=== PATIENT | female | born 1975 | race Caucasian/White ===

== ENCOUNTER → 2016-08-29 | Day surgery (SDC) | payer BC ==
--- NOTE | 2016-08-23 12:06 | MH ---
cc: KOLTON PERALTA MD Chano Garcia, [place], [place]. DATE OF ADMISSION: 08/29/2016 ADMITTING DIAGNOSIS: Trans obturator tape for stress incontinence. HISTORY OF PRESENT ILLNESS: The patient is a 41 year-old white female, 3, Para 3, has had issues with stress urinary incontinence since her last vaginal delivered baby. Her largest baby has been 9 pounds. She has had a urine annex study at her doctor in [place] which showed leakage at less then half capacity, no detrusor instability and no significant post void residual. The patient opted for surgical correction. PAST MEDICAL HISTORY: Negative for heart, lung or liver disease, hypertension, diabetes, stroke. PAST SURGICAL HISTORY: None. OBSTETRICAL HISTORY: Two vaginal deliveries, largest baby 9 pounds. GYNECOLOGY HISTORY: No Sexually transmitted diseases or abnormal pap smears. 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 No alcohol, tobacco or caffeine abuse. , has good social support. FAMILY HISTORY: Noncontributory. ALLERGIES None. MEDICATIONS: None. REVIEW OF SYSTEMS As above. Stress urinary incontinence with laughing, jumping and vigorous activity, no chest pain, orthopnea, paroxysmal nocturnal dyspnea, no nausea and vomiting, fever or chills, no vaginal bleeding or discharge. Periods are once a month. PHYSICAL EXAMINATION: VITAL SIGNS: She is afebrile, vital signs are stable. Blood pressure is 120/70, height is 5'4". Weight 185, body mass index is 31.8. IN GENERAL: The patient is alert and oriented, no heat stress, no sign of cognitive dysfunction or depression. HEAD, EYES, EARS, NOSE, AND THROAT: Within normal limits. NECK: The neck is supple, no jugular venous distention. CHEST: The chest is clear. HEART: Regular rate and rhythm. ABDOMEN: The abdomen is soft, nontender. No hepatosplenomegaly, no costovertebral angle tenderness. PELVIS: The pelvis will be detailed under anesthesia in the office. We note; pop Q score Aa is -1, Ap -2, Point C is -8. General hiatus is 4, peritoneal body is 4, total vaginal length is 10. Levator muscles are 2/5 strength, her reflexes are decreased. The post void residual is 10 cc. Hypermobility of her urethra is noted. EXTREMITIES: The extremities are normal. SKIN: The skin is without rashes. NEUROLOGIC: Nerves are nonfocal, no deep venous thrombosis signs. ASSESSMENT: Patient with stress urinary incompetency with hypermobility and no evidence of post void residual elevation or intrusor instability. The patient at this point is going through four pads per day and this impacts negatively on her quality of life and she wants to proceed with surgical correction. PLAN: The patient is aware of the risks, benefits and alternatives of the planned procedure including damage to the surrounding organs, bleeding, infection and failure of repair as well as issues with dyspareunia, mesh erosion and failure of the procedure to completely eliminate incompetence. The patient has made an informed choice to proceed, we will use deep venous thrombosis prophylaxis with sequential compression devices, antibiotic coverage with Ancef two grams. Anticipate outpatient procedure. MD CARSON Fung/ivelisse /11:36 AM 11:40 AM
[~2016-08-29] VITALS: Ht 162.6 cm; Wt 84.3 kg
[~2016-08-29] MED LIST: CHLORHEXIDINE GLUCONATE 2 % 1 PACK (2 CLOTHS) TOPICAL PRN; DEXAMETHASONE SOD PHOS 4 MG/ML VIAL ONE; DO NOT ADM ANY ANTICOAGULANT DRUGS PRN; FAMOTIDINE 20 MG/2 ML VIAL ONE; FLUORESCEIN SOD 10% SOLN 500 MG/5 ML AMP ONE; INSULIN HUMAN REGULAR 1,000 UNITS/10 ML VIAL SQ PRN; KETOROLAC TROMETHAMINE 30 MG/ML (IVP) VIAL IV PUSH PRN; KETOROLAC TROMETHAMINE 60 MG/2 ML (IM) VIAL IM ONE; LACTATED RINGER'S 1000 ML INJ 1,000 ML IV ONE; LACTATED RINGER'S 1000 ML IV PRN; LIDOCAINE 1%/EPINEPHrine 1:100,000 SOLN 50 ML VIAL INFIL ONE; METHYLENE BLUE 10 MG/ML VIAL OTHER ONE; METOPROLOL TARTRATE 25 MG TAB PO PRN; MIDAZOLAM HCL 2 MG/2 ML VIAL ONE; ONDANSETRON HCL 4 MG/2 ML VIAL IV PUSH ONE; ONDANSETRON HCL 4 MG/2 ML VIAL IV PUSH PRN; POVIDONE IODINE 5% (ANTISEPSIS KIT) 4 APPLICATIONS EACH NARE PRN; PROPOFOL 200 MG/20 ML AMP IV ONE; SODIUM CHLORID 0.9% 500 ML IV PRN; ceFAZolin 2 GM PREMIX 50 ML IV SCH; ePHEDrine/NS 25 MG/5 ML SYR IV ONE; fentaNYL CITRATE 250 MCG/5 ML AMP ONE; traMADol HCL 50 MG TAB PO PRN
[2016-08-29 07:30] VITALS: BP 135/67; PULSE 74; RESP 18; TEMP 98.1; O2SAT 99
--- NOTE | 2016-08-29 12:30 | MP ---
cc: KOLTON PERALTA MICHELLE, MD DATE OF SURGERY 08/29/2016 PREOPERATIVE DIAGNOSIS Stress urinary incontinence. POSTOPERATIVE DIAGNOSES Stress urinary incontinence with cystocele grade 2 PROCEDURE 1. Transobturator midurethral sling with Sabina Desara polypropylene sling 2. Anterior repair 3. Diagnostic cystoscopy SURGEON Dr. 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 Point C is -8. Total vaginal length is 10. Genital hiatus is 6. Perineal body is 6. Uterus is anteverted and anteflexed and no adnexal mass. Following repair POP-Q score: Aa is -3. The remainder of the exam is unremarkable. Cystoscopy shows normal trigone, good coaptation of urethra. Ureteral orifices patent x2. Dome and base of bladder normal. SPECIMENS None COMPLICATIONS None DISPOSITION To recovery room stable. COUNTS Needle and sponge count correct. DRAINS Lora catheter ANTIBIOTIC PROPHYLAXIS Ancef two grams DVT PROPHYLAXIS Sequential compression device. TIME OUT PROCEDURE Per protocol SUMMARY OF INDICATION AND PROCEDURE Patient with symptomatic stress urinary incontinence. She had hypermobility on clinical exam as well as urodynamic studies that showed leak at one half total capacity and no sign of detrusor instability. The patient was taken to the operating room theater, identified, prepped and draped in a fashion appropriate for the planned procedure. She was in the dorsal lithotomy position with careful attention paid to placement of legs in the stirrups to avoid undue stress to sensitive neurovascular structures. The above findings noted. Neurovascular integrity documented. Lora catheter was placed and methylene blue was instilled into the bladder. The urethra length was identified by palpation of the Lora bulb. This was marked with a marking pen. We then marked the obturator foramen bilaterally. Infiltration with epinephrine/lidocaine solution was made into the obturator areas bilaterally. The mucosa was infiltrated with epinephrine/lidocaine solution. A midline incision was made. The urethra was mobilized. There was no spill of methylene blue with dissection. From a lateral to medial position, a C-hook was placed bilaterally with no spill of methylene blue. No buttonholing of the vagina. The tape was placed in the mid urethra area and using a scalpel handle as a spacer. The tape was tensioned appropriately. Cystoscopy was performed using a 17-Malian bridge, a 70 degree scope. The above findings were noted. Anterior repair was performed with delayed absorbable suture. The vaginal cuff was trimmed. The mucosa was closed with a running Vicryl suture and hemostatic matrix was used for added reassurance to obviate the need for packing. The procedure was concluded. The skin incisions were closed with Dermabond. She will undergo a voiding trial and if she meets criteria, she can be discharged from the postop floor. MD CARSON Fung/MICHAEL /11:30 AM /12:18 PM
[2016-08-29 12:46] VITALS: BP 105/60; PULSE 74; RESP 18; TEMP 98.1; O2SAT 97
== END | disposition home or self-care (01) ==
LOC: HSDC 07:22
PROVIDERS: ATTEND Obstetrics & Gynecology Gynecology
DX: N39.3 Stress incontinence (female) (male) (principal); N36.41 Hypermobility of urethra; N81.10 Cystocele, unspecified
CPT/HCPCS: 00942; 57240; 57288; C1771; J0690; J1100; J1885; J2250; J2405; J3010; J7120